=== PATIENT | male | born 1940 | race Caucasian/White ===

== ENCOUNTER 2016-09-29 18:04 | Emergency (ER) | payer OTHER ==
--- NOTE | 2016-09-29 18:48 | ED CLINICAL REPORT ---
Clinical Report - Physicians/Mid Levels [facility] [address] [place] [address] 09/29/2016 18:04 Patient: BARBARA MURDOCK Time Seen: 18:17. Arrived- By private vehicle. Historian- patient. HISTORY OF PRESENT ILLNESS Chief Complaint: "food stuck in my throat". This started just prior to arrival and is still present. It was abrupt in onset and has been constant. (patient has a history of lung cancer which she says has now been treated and that he is cancer free. However, he underwent radiation therapy during his treatment. He says that he has hada prior event where food got stuck in his throat and that this improved with the use of glucagon. This occurred up at [facility] several weeks ago. He says that he is not able to swallow his secretions or liquids He believes that a piece of roast beef and some mashed potatoes may have gotten stuck). REVIEW OF SYSTEMS No chills, fever, sweats, calf pain or chest pain. No cough, difficulty breathing, pedal edema, palpitations or abdominal pain. No constipation, diarrhea, nausea, vomiting or urinary problems. All systems otherwise negative, except as recorded above. PAST HISTORY Problems: Nephropathy. TIA - Transient Ischemic Attack. Cancer. Paresthesia. Rib Fracture. Fall. Contusion. Heart Disease. Urinary Retention. Pneumonia. Sleep Apnea. CVA - Cerebrovascular Accident. [place] . Bronchitis. Chronic Back Pain. Diabetes Mellitus. Hypertension. Additional Surgeries: Bilateral hand surgeries . Cardiac stent. Cholecystectomy. Hernia Repair. Tonsillectomy. Umbilical Hernia Repair. Medications: Vitamin E Complex Oral. Amino Acids ER Oral. Amitriptyline HCl Oral 50 mg, at bedtime. Chemotherapy, weekly, last dose 10 days ago (skipped this week due to low WBC (IV infusion though PORT). ferritin 2 tablets, daily. Furosemide Oral 20 mg, 2x a day. Hydrochlorothiazide Oral 25 mg, daily. Insulin Levemir 12 units, 2x a day. Insulin Novalog sliding scale, 3x a day. MetFORMIN HCl Oral (Tablet 500 mg) 2 tablets, 2x a day. NIFEdipine Oral 30 mg, at bedtime. Plavix Oral (Tablet 75 mg) 1 tablet, daily. Potassium Oral 10meq, daily. Vitamin B-12 Oral. Vitamin c Oral. Vitamin D Oral. Allergies: None. SOCIAL HISTORY Former smoker, end date 1996. No alcohol use or drug use. FAMILY HISTORY Denies family medical history. ADDITIONAL NOTES The nursing notes have been reviewed. PHYSICAL EXAM Vital Signs: 09/29/2016 18:10 BP: 200/71. HR: 91. RR: 20. O2 saturation: 97%. Temp: 98.3 F. Pain level now: 03/03. Have been reviewed. Appearance: Alert. Eyes: Pupils equal, round and reactive to light. ENT: Ears normal. Nose normal. Pharynx normal. (he is not able to swallow his secretions). Neck: Neck supple. No carotid bruit. CVS: Normal heart rate and rhythm. 1/6 systolic murmur. Respiratory: No respiratory distress. Breath sounds normal. Abdomen: No visible injury. Soft and nontender. Bowel sounds normal. No organomegaly. No mass. Back: Normal inspection. Skin: Skin warm and dry. Normal skin color. Normal skin turgor. Extremities: Extremities exhibit normal ROM. No lower extremity edema. Neuro: No motor deficit. No sensory deficit. PROGRESS AND PROCEDURES Course of Care: he has an appointment pending in [address] Elder a manufacturers agent in [place]. This appointment is to evaluate him further for this problem. The patient's symptoms are now gone. Vital signs have been reviewed. Physical exam findings are improved. Alert. No acute distress. No respiratory distress. Normal heart rate and rhythm. Abdomen soft and nontender. Skin warm and dry. ( his symptoms resolved and he is able to drink liquids without difficulty after being treated with glucagon). Patient/family counseled. Old medical records reviewed. Disposition: Discharged. Condition: stable. CLINICAL IMPRESSION Esophageal foreign body. INSTRUCTIONS Liquids only until reevaluated. Warnings: Further evaluation is necessary. GENERAL WARNINGS: Return or contact your physician immediately if your condition worsens or changes unexpectedly, if not improving as expected, or if other problems arise. Your Current Medications: CONTINUE TAKING THE FOLLOWING MEDICATIONS: Amino Acids ER Oral. Amitriptyline HCl Oral : 50 mg at bedtime. ferritin* : 2 tablets daily. Furosemide Oral : 20 mg 2x a day. Hydrochlorothiazide Oral : 25 mg daily. Insulin Levemir* : 12 units 2x a day. Insulin Novalog* : sliding scale 3x a day. MetFORMIN HCl Oral : Tablet 500 mg, 2 tablets 2x a day. NIFEdipine Oral : 30 mg at bedtime. Plavix Oral : Tablet 75 mg, 1 tablet daily. Potassium Oral : 10meq daily. Vitamin B-12 Oral. Vitamin c Oral. Vitamin D Oral. Vitamin E Complex Oral. CONTINUE TAKING THE FOLLOWING MEDICATIONS UNTIL YOU CHECK WITH YOUR PHYSICIAN: Chemotherapy* : weekly, Last: 10 days ago (skipped this week due to low WBC, IV infusion though PORT. Follow-up: Follow up with a manufacturers agent Dr. Elder in four days as scheduled. Understanding of the discharge instructions verbalized by patient and family. (Electronically signed by Yung Chase MD 09/29/2016 19:12)
--- NOTE | 2016-09-29 18:48 | ED NURSING NOTES ---
Clinical Report - Nurses [facility] [address] [place] [address] 09/29/2016 18:04 Patient: BARBARA MURDOCK TRIAGE Acuity: LEVEL 3. Chief Complaint: (food caught in throat). Alert. No acute distress. --18:20 Sherry Mendez R.N. 18:10 09/29/16. BP: 200/71. HR: 91. RR: 20. O2 saturation: 97% on room air. Temp: 98.3 F. Pain level now: 03/03. --18:20 Sherry Mendez R.N. Weight: 93.8 kg stated. Height/Length: 71 inches Per Patient. BMI: 28.9. --18:15 Sherry Mendez R.N. Medications Amino Acids ER Oral. Amitriptyline HCl Oral 50 mg, at bedtime. Chemotherapy, weekly, last dose 10 days ago (skipped this week due to low WBC (IV infusion though PORT). ferritin 2 tablets, daily. Furosemide Oral 20 mg, 2x a day. Hydrochlorothiazide Oral 25 mg, daily. Insulin Levemir 12 units, 2x a day. Insulin Novalog sliding scale, 3x a day. MetFORMIN HCl Oral (Tablet 500 mg) 2 tablets, 2x a day. NIFEdipine Oral 30 mg, at bedtime. Plavix Oral (Tablet 75 mg) 1 tablet, daily. Potassium Oral 10meq, daily. Vitamin B-12 Oral. Vitamin c Oral. Vitamin D Oral. --18:12 Sherry Mendez R.N. Vitamin E Complex Oral. --18:12 Sherry Mendez R.N. Medication/allergy information source: the patient. --18:20 Sherry Mendez R.N. Allergies None. --18:13 Sherry Mendez R.N. History Arrived by private vehicle. Historian: patient. Accompanied by spouse. This started just prior to arrival. ( Pt reports he was eating roast beef and potatoes and now feels it is stuck in his throat. He states he had the same thing occur 2 weeks ago. Pt having difficulty swallowing secretions.). Treatment HOME HEALTH CNA: None. SOCIAL HX: Former smoker, end date 1996. No alcohol use or drug use. FALL RISK ASSESSMENT: Fall risk assessment completed. No fall risk identified. NUTRITIONAL RISK ASSESSMENT: The nutritional risk assessment revealed no deficiencies. FUNCTIONAL ASSESSMENT: Functional assessment: no impairments noted. LEARNING NEEDS ASSESSMENT: The learning needs assessment revealed no barriers. SKIN INTEGRITY ASSESSMENT: Skin integrity risk assessment completed. No skin integrity risk identified. --18:20 Sherry Mendez R.N. PROBLEMS: Nephropathy. TIA - Transient Ischemic Attack. Cancer. Paresthesia. Rib Fracture. Fall. Contusion. Heart Disease. Urinary Retention. Pneumonia. Sleep Apnea. [place] . Immunizations. Bronchitis. Chronic Back Pain. Diabetes Mellitus. Hypertension. --18:13 Sherry Mendez R.N. ADDITIONAL SURGERIES: Bilateral hand surgeries . Cardiac stent. Cholecystectomy. Hernia Repair. Tonsillectomy. Umbilical Hernia Repair. --18:13 Sherry Mendez R.N. Assessment GENERAL / NEURO / PSYCH: Alert. Oriented X 4. Appears in no acute distress. [place] Coma Scale: 15- eyes open spontaneously (4); best verbal response- oriented x 4 (5); best motor response- obeys commands (6). Patient appears calm and cooperative. RESPIRATORY: Respirations not labored. CVS: Capillary refill less than 2 seconds. GI / : Abdomen soft and nontender. SKIN: Mucous membranes are pink. Skin is warm and dry. --18:20 Sherry Mendez R.N. Interventions ID band on patient. To treatment room. --18:20 Sherry Mendez R.N. PHYSICAL ASSESSMENT 18:09/29/16. Ambulatory to room. GENERAL / NEURO / PSYCH: Alert. Oriented X 4. Appears in no acute distress. HEENT: Pupils equal, round and reactive to light. Voice within normal limits. Mucous membranes are pink. RESPIRATORY: Respirations not labored. CVS: Capillary refill less than 2 seconds. SKIN: Skin is warm and dry. --18:21 Sherry Mendez R.N. NURSING PROGRESS NOTES 18:21 09/29/16. Patient gowned. Two patient identifiers checked. Call light placed in reach. Side rails up x 2. Bed placed in lowest position. Brakes of bed on. Patient ready for evaluation- chart flagged and ED physician notified. ( suction provided). --18:21 Sherry Mendez R.N. 18:29 09/29/2016 Site #1 started via IV in the left wrist with an 20g angiocath, with aseptic technique and good blood return; one attempt. Blood drawn: rainbow set. Labeled in the presence of the patient and held. Saline lock flushed with 10 mL saline. --18:29 Sherry Mendez R.N. 18:29 09/29/2016 Glucagon IVP 0.5 mg given over 1 minute(s) via site #1. Allergies verified and confirmed 5 rights. IV patency established. IV site checked: no pain, redness, or swelling. IV flushed thoroughly pre- and post-medication administration. IVP given by RN. --18:29 Sherry Mendez R.N. 18:39 09/29/16. BP: 160/54. HR: 83. RR: 19. O2 saturation: 95% on room air. --18:40 Sherry Mendez R.N. 18:46 09/29/16. ( Pt able to drink water. Pt states foreign body has cleared.). --18:46 Sherry Mendez R.N. 18:46 09/29/16. Reassessment after medication administered. He has had no adverse reaction. Overall patient status- he states feels better. --18:46 Sherry Mendez R.N. 18:50 09/29/2016 Site #1 removed upon discharge. Catheter intact. Manual pressure and bandage applied. --20:28 Sherry Mendez R.N. DISPOSITION / DISCHARGE Departure time: 18:55 Sep 29 2016. Condition at departure: improved and stable. No learning barriers present. Discharge instructions provided and reviewed with the patient. Patient verbalized understanding. Written instructions provided in Portuguese. The patient was discharged by the physician. He was discharged home and accompanied by spouse. He left the Emergency Department ambulatory and via private vehicle. Spouse driving. --20:28 Sherry Mendez R.N. 20:27 09/29/16. BP: 146/44. HR: 83. RR: 20. O2 saturation: 97% on room air. Temp: 98.4 F (oral). Pain level now: 0/10. --20:28 Sherry Mendez R.N. Locked/Released at 09/29/2016 20:29 by Sherry Mendez R.N.
--- NOTE | 2016-09-29 18:48 | ED NURSING NOTES ---
Clinical Report - Nurses [facility] [address] [place] [address] 09/29/2016 18:04 Patient: BARBARA MURDOCK TRIAGE Acuity: LEVEL 3. Chief Complaint: (food caught in throat). Alert. No acute distress. --18:20 Sherry Mendez R.N. 18:10 09/29/16. BP: 200/71. HR: 91. RR: 20. O2 saturation: 97% on room air. Temp: 98.3 F. Pain level now: 03/03. --18:20 Sherry Mendez R.N. Weight: 93.8 kg stated. Height/Length: 71 inches Per Patient. BMI: 28.9. --18:15 Sherry Mendez R.N. Medications Amino Acids ER Oral. Amitriptyline HCl Oral 50 mg, at bedtime. Chemotherapy, weekly, last dose 10 days ago (skipped this week due to low WBC (IV infusion though PORT). ferritin 2 tablets, daily. Furosemide Oral 20 mg, 2x a day. Hydrochlorothiazide Oral 25 mg, daily. Insulin Levemir 12 units, 2x a day. Insulin Novalog sliding scale, 3x a day. MetFORMIN HCl Oral (Tablet 500 mg) 2 tablets, 2x a day. NIFEdipine Oral 30 mg, at bedtime. Plavix Oral (Tablet 75 mg) 1 tablet, daily. Potassium Oral 10meq, daily. Vitamin B-12 Oral. Vitamin c Oral. Vitamin D Oral. --18:12 Sherry Mendez R.N. Vitamin E Complex Oral. --18:12 Sherry Mendez R.N. Medication/allergy information source: the patient. --18:20 Sherry Mendez R.N. Allergies None. --18:13 Sherry Mendez R.N. History Arrived by private vehicle. Historian: patient. Accompanied by spouse. This started just prior to arrival. ( Pt reports he was eating roast beef and potatoes and now feels it is stuck in his throat. He states he had the same thing occur 2 weeks ago. Pt having difficulty swallowing secretions.). Treatment DIVERSIONAL THERAPIST'S ASSISTANT: None. SOCIAL HX: Former smoker, end date 1996. No alcohol use or drug use. FALL RISK ASSESSMENT: Fall risk assessment completed. No fall risk identified. NUTRITIONAL RISK ASSESSMENT: The nutritional risk assessment revealed no deficiencies. FUNCTIONAL ASSESSMENT: Functional assessment: no impairments noted. LEARNING NEEDS ASSESSMENT: The learning needs assessment revealed no barriers. SKIN INTEGRITY ASSESSMENT: Skin integrity risk assessment completed. No skin integrity risk identified. --18:20 Sherry Mendez R.N. PROBLEMS: Nephropathy. TIA - Transient Ischemic Attack. Cancer. Paresthesia. Rib Fracture. Fall. Contusion. Heart Disease. Urinary Retention. Pneumonia. Sleep Apnea. [place] . Immunizations. Bronchitis. Chronic Back Pain. Diabetes Mellitus. Hypertension. --18:13 Sherry Mendez R.N. ADDITIONAL SURGERIES: Bilateral hand surgeries . Cardiac stent. Cholecystectomy. Hernia Repair. Tonsillectomy. Umbilical Hernia Repair. --18:13 Sherry Mendez R.N. Assessment GENERAL / NEURO / PSYCH: Alert. Oriented X 4. Appears in no acute distress. [place] Coma Scale: 15- eyes open spontaneously (4); best verbal response- oriented x 4 (5); best motor response- obeys commands (6). Patient appears calm and cooperative. RESPIRATORY: Respirations not labored. CVS: Capillary refill less than 2 seconds. GI / : Abdomen soft and nontender. SKIN: Mucous membranes are pink. Skin is warm and dry. --18:20 Sherry Mendez R.N. Interventions ID band on patient. To treatment room. --18:20 Sherry Mendez R.N. PHYSICAL ASSESSMENT 18:09/29/16. Ambulatory to room. GENERAL / NEURO / PSYCH: Alert. Oriented X 4. Appears in no acute distress. HEENT: Pupils equal, round and reactive to light. Voice within normal limits. Mucous membranes are pink. RESPIRATORY: Respirations not labored. CVS: Capillary refill less than 2 seconds. SKIN: Skin is warm and dry. --18:21 Sherry Mendez R.N. NURSING PROGRESS NOTES 18:21 09/29/16. Patient gowned. Two patient identifiers checked. Call light placed in reach. Side rails up x 2. Bed placed in lowest position. Brakes of bed on. Patient ready for evaluation- chart flagged and ED physician notified. ( suction provided). --18:21 Sherry Mendez R.N. 18:29 09/29/2016 Site #1 started via IV in the left wrist with an 20g angiocath, with aseptic technique and good blood return; one attempt. Blood drawn: rainbow set. Labeled in the presence of the patient and held. Saline lock flushed with 10 mL saline. --18:29 Sherry Mendez R.N. 18:29 09/29/2016 Glucagon IVP 0.5 mg given over 1 minute(s) via site #1. Allergies verified and confirmed 5 rights. IV patency established. IV site checked: no pain, redness, or swelling. IV flushed thoroughly pre- and post-medication administration. IVP given by RN. --18:29 Sherry Mendez R.N. 18:39 09/29/16. BP: 160/54. HR: 83. RR: 19. O2 saturation: 95% on room air. --18:40 Sherry Mendez R.N. 18:46 09/29/16. ( Pt able to drink water. Pt states foreign body has cleared.). --18:46 Sherry Mendez R.N. 18:46 09/29/16. Reassessment after medication administered. He has had no adverse reaction. Overall patient status- he states feels better. --18:46 Sherry Mendez R.N. 18:50 09/29/2016 Site #1 removed upon discharge. Catheter intact. Manual pressure and bandage applied. --20:28 Sherry Mendez R.N. DISPOSITION / DISCHARGE Departure time: 18:55 Sep 29 2016. Condition at departure: improved and stable. No learning barriers present. Discharge instructions provided and reviewed with the patient. Patient verbalized understanding. Written instructions provided in Sinhala. The patient was discharged by the physician. He was discharged home and accompanied by spouse. He left the Emergency Department ambulatory and via private vehicle. Spouse driving. --20:28 Sherry Mendez R.N. 20:27 09/29/16. BP: 146/44. HR: 83. RR: 20. O2 saturation: 97% on room air. Temp: 98.4 F (oral). Pain level now: 0/10. --20:28 Sherry Mendez R.N. Locked/Released at 09/29/2016 20:29 by Sherry Mendez R.N.
--- NOTE | 2016-09-29 18:48 | ED ORDER SUMMARY ---
..... Patient: BARBARA MURDOCK OrderSheet [facility] VisitID: [id number] [address] [place] [address] 76y, M Registration Date/Time: 09/29/2016 ORDER SHEET Weight: 93.8 kg (stated) Allergies: None GENERAL ORDERS: MEDICATION ORDERS: Glucagon IV 0.5 mg (NOW) (18:28 09/29/2016 Guero RLuis EnriqueNLuis Enrique verbal order read back to Grzegorz BLOOD) (18:29 MWinterdelgado R.NLuis Enrique) IV FLUIDS: ORDER SHEET NOTES: [Electronically signed by Yung Chase MD (19:12 09/29/2016)] [Electronically signed by Sherry Mendez R.N. (20:29 09/29/2016)] [Electronically locked/signed by Sherry Mendez R.N. (20:29 09/29/2016)]
--- NOTE | 2016-09-29 18:48 | ED ORDER SUMMARY ---
..... Patient: BARBARA MURDOCK OrderSheet [facility] VisitID: [id number] [address] [place] [place] [address] 76y, M Registration Date/Time: 09/29/2016 ORDER SHEET Weight: 93.8 kg (stated) Allergies: None GENERAL ORDERS: MEDICATION ORDERS: Glucagon IV 0.5 mg (NOW) (18:28 09/29/2016 Guero RLuis EnriqueNLuis Enrique verbal order read back to Grzegorz BLOOD) (18:29 MWinterdelgado R.NLuis Enrique) IV FLUIDS: ORDER SHEET NOTES: [Electronically signed by Yung Chase MD (19:12 09/29/2016)] [Electronically signed by Sherry Mendez R.N. (20:29 09/29/2016)] [Electronically locked/signed by Sherry Mendez R.N. (20:29 09/29/2016)]
--- NOTE | 2016-09-29 18:48 | ED CLINICAL REPORT ---
Clinical Report - Physicians/Mid Levels [facility] [address] [place] [address] 09/29/2016 18:04 Patient: BARBARA MURDOCK Time Seen: 18:17. Arrived- By private vehicle. Historian- patient. HISTORY OF PRESENT ILLNESS Chief Complaint: "food stuck in my throat". This started just prior to arrival and is still present. It was abrupt in onset and has been constant. (patient has a history of lung cancer which she says has now been treated and that he is cancer free. However, he underwent radiation therapy during his treatment. He says that he has hada prior event where food got stuck in his throat and that this improved with the use of glucagon. This occurred up at [facility] several weeks ago. He says that he is not able to swallow his secretions or liquids He believes that a piece of roast beef and some mashed potatoes may have gotten stuck). REVIEW OF SYSTEMS No chills, fever, sweats, calf pain or chest pain. No cough, difficulty breathing, pedal edema, palpitations or abdominal pain. No constipation, diarrhea, nausea, vomiting or urinary problems. All systems otherwise negative, except as recorded above. PAST HISTORY Problems: Nephropathy. TIA - Transient Ischemic Attack. Cancer. Paresthesia. Rib Fracture. Fall. Contusion. Heart Disease. Urinary Retention. Pneumonia. Sleep Apnea. CVA - Cerebrovascular Accident. [place] . Bronchitis. Chronic Back Pain. Diabetes Mellitus. Hypertension. Additional Surgeries: Bilateral hand surgeries . Cardiac stent. Cholecystectomy. Hernia Repair. Tonsillectomy. Umbilical Hernia Repair. Medications: Vitamin E Complex Oral. Amino Acids ER Oral. Amitriptyline HCl Oral 50 mg, at bedtime. Chemotherapy, weekly, last dose 10 days ago (skipped this week due to low WBC (IV infusion though PORT). ferritin 2 tablets, daily. Furosemide Oral 20 mg, 2x a day. Hydrochlorothiazide Oral 25 mg, daily. Insulin Levemir 12 units, 2x a day. Insulin Novalog sliding scale, 3x a day. MetFORMIN HCl Oral (Tablet 500 mg) 2 tablets, 2x a day. NIFEdipine Oral 30 mg, at bedtime. Plavix Oral (Tablet 75 mg) 1 tablet, daily. Potassium Oral 10meq, daily. Vitamin B-12 Oral. Vitamin c Oral. Vitamin D Oral. Allergies: None. SOCIAL HISTORY Former smoker, end date 1996. No alcohol use or drug use. FAMILY HISTORY Denies family medical history. ADDITIONAL NOTES The nursing notes have been reviewed. PHYSICAL EXAM Vital Signs: 09/29/2016 18:10 BP: 200/71. HR: 91. RR: 20. O2 saturation: 97%. Temp: 98.3 F. Pain level now: 03/03. Have been reviewed. Appearance: Alert. Eyes: Pupils equal, round and reactive to light. ENT: Ears normal. Nose normal. Pharynx normal. (he is not able to swallow his secretions). Neck: Neck supple. No carotid bruit. CVS: Normal heart rate and rhythm. 1/6 systolic murmur. Respiratory: No respiratory distress. Breath sounds normal. Abdomen: No visible injury. Soft and nontender. Bowel sounds normal. No organomegaly. No mass. Back: Normal inspection. Skin: Skin warm and dry. Normal skin color. Normal skin turgor. Extremities: Extremities exhibit normal ROM. No lower extremity edema. Neuro: No motor deficit. No sensory deficit. PROGRESS AND PROCEDURES Course of Care: he has an appointment pending in [address] Elder a forest and conservation worker in [place]. This appointment is to evaluate him further for this problem. The patient's symptoms are now gone. Vital signs have been reviewed. Physical exam findings are improved. Alert. No acute distress. No respiratory distress. Normal heart rate and rhythm. Abdomen soft and nontender. Skin warm and dry. ( his symptoms resolved and he is able to drink liquids without difficulty after being treated with glucagon). Patient/family counseled. Old medical records reviewed. Disposition: Discharged. Condition: stable. CLINICAL IMPRESSION Esophageal foreign body. INSTRUCTIONS Liquids only until reevaluated. Warnings: Further evaluation is necessary. GENERAL WARNINGS: Return or contact your physician immediately if your condition worsens or changes unexpectedly, if not improving as expected, or if other problems arise. Your Current Medications: CONTINUE TAKING THE FOLLOWING MEDICATIONS: Amino Acids ER Oral. Amitriptyline HCl Oral : 50 mg at bedtime. ferritin* : 2 tablets daily. Furosemide Oral : 20 mg 2x a day. Hydrochlorothiazide Oral : 25 mg daily. Insulin Levemir* : 12 units 2x a day. Insulin Novalog* : sliding scale 3x a day. MetFORMIN HCl Oral : Tablet 500 mg, 2 tablets 2x a day. NIFEdipine Oral : 30 mg at bedtime. Plavix Oral : Tablet 75 mg, 1 tablet daily. Potassium Oral : 10meq daily. Vitamin B-12 Oral. Vitamin c Oral. Vitamin D Oral. Vitamin E Complex Oral. CONTINUE TAKING THE FOLLOWING MEDICATIONS UNTIL YOU CHECK WITH YOUR PHYSICIAN: Chemotherapy* : weekly, Last: 10 days ago (skipped this week due to low WBC, IV infusion though PORT. Follow-up: Follow up with a forest and conservation worker Dr. Elder in four days as scheduled. Understanding of the discharge instructions verbalized by patient and family. (Electronically signed by Yung Chase MD 09/29/2016 19:12)
--- NOTE | 2016-09-29 20:29 | ED MAR SUMMARY ---
..... Medication Administration Record [facility] [address] [place], [place] [id number] Patient: BARBARA MURDOCK Visit ID: [id number] 76y, M Weight: 93.8 kg Height/Length: 71 in BMI: 28.9 ALLERGIES: None Given 18:29 09/29/2016 Sherry Mendez R.N. Medication Administered: GLUCAGON [IVP], Dose: 0.5 mg IVP over 1 minute(s), Site: #1 left wrist. Medication Ordered: Glucagon IV 0.5 mg (NOW).
--- NOTE | 2016-09-29 20:29 | ED MED RECONCILIATION SUMMARY ---
Patient: BARBARA MURDOCK Medication Reconciliation Report [facility] VisitID: [id number] [address] [place] [address] 76y, M Registration Date/Time: 09/29/2016 Weight: 93.8 kg Height/Length: 71 in. BMI: 28.9 ALLERGIES: None The patient's Home Medications are listed below: CONTINUE TAKING THE FOLLOWING MEDICATIONS: Amino Acids ER Oral Amitriptyline HCl Oral 50 mg, at bedtime ferritin 2 tablets, daily Furosemide Oral 20 mg, 2x a day Hydrochlorothiazide Oral 25 mg, daily Insulin Levemir 12 units, 2x a day Insulin Novalog sliding scale, 3x a day MetFORMIN HCl Oral (500 mg) 2 tablets, 2x a day NIFEdipine Oral 30 mg, at bedtime Plavix Oral (75 mg) 1 tablet, daily Potassium Oral 10meq, daily Vitamin B-12 Oral Vitamin c Oral Vitamin D Oral Vitamin E Complex Oral CONTINUE TAKING THE FOLLOWING MEDICATIONS UNTIL YOU CHECK WITH YOUR PHYSICIAN: Chemotherapy, weekly, last dose: 10 days ago (skipped this week due to low WBC , IV infusion though PORT The source(s) of the original Home Medication information: patient The following Medications were given to the patient in the Emergency Department: Glucagon [IVP] IVP 0.5 mg, administered: 09/29/2016 6:29:00 PM The following Medications were prescribed to the patient: None.
--- NOTE | 2016-09-29 20:29 | ED MED RECONCILIATION SUMMARY ---
Patient: BARBARA MURDOCK Medication Reconciliation Report [facility] VisitID: [id number] [address] [place] [address] 76y, M Registration Date/Time: 09/29/2016 Weight: 93.8 kg Height/Length: 71 in. BMI: 28.9 ALLERGIES: None The patient's Home Medications are listed below: CONTINUE TAKING THE FOLLOWING MEDICATIONS: Amino Acids ER Oral Amitriptyline HCl Oral 50 mg, at bedtime ferritin 2 tablets, daily Furosemide Oral 20 mg, 2x a day Hydrochlorothiazide Oral 25 mg, daily Insulin Levemir 12 units, 2x a day Insulin Novalog sliding scale, 3x a day MetFORMIN HCl Oral (500 mg) 2 tablets, 2x a day NIFEdipine Oral 30 mg, at bedtime Plavix Oral (75 mg) 1 tablet, daily Potassium Oral 10meq, daily Vitamin B-12 Oral Vitamin c Oral Vitamin D Oral Vitamin E Complex Oral CONTINUE TAKING THE FOLLOWING MEDICATIONS UNTIL YOU CHECK WITH YOUR PHYSICIAN: Chemotherapy, weekly, last dose: 10 days ago (skipped this week due to low WBC , IV infusion though PORT The source(s) of the original Home Medication information: patient The following Medications were given to the patient in the Emergency Department: Glucagon [IVP] IVP 0.5 mg, administered: 09/29/2016 6:29:00 PM The following Medications were prescribed to the patient: None.
--- NOTE | 2016-09-29 20:29 | ED DISCHARGE INSTRUCTIONS ---
Patient: BARBARA MURDOCK General Instructions [facility] VisitID: [id number] [address] [place] [address] 76y, M Registration Date/Time: 09/29/2016 Esophageal foreign body. INSTRUCTIONS Liquids only until reevaluated. Warnings: Further evaluation is necessary. GENERAL WARNINGS: Return or contact your physician immediately if your condition worsens or changes unexpectedly, if not improving as expected, or if other problems arise. Your Current Medications: CONTINUE TAKING THE FOLLOWING MEDICATIONS: Amino Acids ER Oral. Amitriptyline HCl Oral : 50 mg at bedtime. ferritin* : 2 tablets daily. Furosemide Oral : 20 mg 2x a day. Hydrochlorothiazide Oral : 25 mg daily. Insulin Levemir* : 12 units 2x a day. Insulin Novalog* : sliding scale 3x a day. MetFORMIN HCl Oral : Tablet 500 mg, 2 tablets 2x a day. NIFEdipine Oral : 30 mg at bedtime. Plavix Oral : Tablet 75 mg, 1 tablet daily. Potassium Oral : 10meq daily. Vitamin B-12 Oral. Vitamin c Oral. Vitamin D Oral. Vitamin E Complex Oral. CONTINUE TAKING THE FOLLOWING MEDICATIONS UNTIL YOU CHECK WITH YOUR PHYSICIAN: Chemotherapy* : weekly, Last: 10 days ago (skipped this week due to low WBC, IV infusion though PORT. Follow-up: Follow up with a pole maker Dr. Elder in four days as scheduled. Understanding of the discharge instructions verbalized by patient and family. ADDITIONAL INFORMATION Esophageal Blockage, Resolved The esophagus is the passage that carries food from the mouth to the stomach. You had a blockage in the esophagus. This can happen after swallowing a large piece of food, taking a large pill or swallowing foreign objects. If this is a recurring problem, it can be a sign of disease in the esophagus such as inflammation or scarring. If you did not require a special procedure (endoscopy) today to treat your condition, further testing will be needed to evaluate this problem. The blockage has cleared. You should be able to swallow normally again. Home Care: For the next 24 hours you may drink liquids and eat soft foods. If you were given IV medicine today for an endoscopy procedure, you may be drowsy for the next 4-[address] or operate dangerous equipment until you feel alert again. If your blockage was from food, be sure to cut solid food into small pieces before putting it into your mouth. Chew all foods well before swallowing. If your blockage was from an lklh-mjg-ayhjegv pill (such as a vitamin), avoid this size pill in the future. If it was from a prescription medicine, ask your doctor for another type of medicine to replace this. Follow Up with your doctor as advised. If you have further problems, contact your doctor or this facility for advice. If this is a recurring problem, contact your doctor to schedule an endoscopy (to look inside the esophagus with a small camera on the end of a tube). Get Prompt Medical Attention if any of the following occur: Chest pain or shortness of breath Unable to swallow Vomiting blood (red or black) Blood in your stool (dark red or black color) Fever of 100.4F (38C) or higher, or as directed by your healthcare provider You have been given the following additional information: Esophageal Foreign Body, Resolved (Electronically signed by Yung Chase MD 09/29/2016 19:12)
--- NOTE | 2016-09-29 20:29 | ED MAR SUMMARY ---
..... Medication Administration Record [facility] [address] [id number] Patient: BARBARA MURDOCK Visit ID: [id number] 76y, M Weight: 93.8 kg Height/Length: 71 in BMI: 28.9 ALLERGIES: None Given 18:29 09/29/2016 Sherry Mendez R.N. Medication Administered: GLUCAGON [IVP], Dose: 0.5 mg IVP over 1 minute(s), Site: #1 left wrist. Medication Ordered: Glucagon IV 0.5 mg (NOW).
--- NOTE | 2016-09-29 20:29 | ED DISCHARGE INSTRUCTIONS ---
Patient: BARBARA MURDOCK General Instructions [facility] VisitID: [id number] [address] [place] [address] 76y, M Registration Date/Time: 09/29/2016 Esophageal foreign body. INSTRUCTIONS Liquids only until reevaluated. Warnings: Further evaluation is necessary. GENERAL WARNINGS: Return or contact your physician immediately if your condition worsens or changes unexpectedly, if not improving as expected, or if other problems arise. Your Current Medications: CONTINUE TAKING THE FOLLOWING MEDICATIONS: Amino Acids ER Oral. Amitriptyline HCl Oral : 50 mg at bedtime. ferritin* : 2 tablets daily. Furosemide Oral : 20 mg 2x a day. Hydrochlorothiazide Oral : 25 mg daily. Insulin Levemir* : 12 units 2x a day. Insulin Novalog* : sliding scale 3x a day. MetFORMIN HCl Oral : Tablet 500 mg, 2 tablets 2x a day. NIFEdipine Oral : 30 mg at bedtime. Plavix Oral : Tablet 75 mg, 1 tablet daily. Potassium Oral : 10meq daily. Vitamin B-12 Oral. Vitamin c Oral. Vitamin D Oral. Vitamin E Complex Oral. CONTINUE TAKING THE FOLLOWING MEDICATIONS UNTIL YOU CHECK WITH YOUR PHYSICIAN: Chemotherapy* : weekly, Last: 10 days ago (skipped this week due to low WBC, IV infusion though PORT. Follow-up: Follow up with a medical insurance claims processor Dr. Elder in four days as scheduled. Understanding of the discharge instructions verbalized by patient and family. ADDITIONAL INFORMATION Esophageal Blockage, Resolved The esophagus is the passage that carries food from the mouth to the stomach. You had a blockage in the esophagus. This can happen after swallowing a large piece of food, taking a large pill or swallowing foreign objects. If this is a recurring problem, it can be a sign of disease in the esophagus such as inflammation or scarring. If you did not require a special procedure (endoscopy) today to treat your condition, further testing will be needed to evaluate this problem. The blockage has cleared. You should be able to swallow normally again. Home Care: For the next 24 hours you may drink liquids and eat soft foods. If you were given IV medicine today for an endoscopy procedure, you may be drowsy for the next 4-[address] or operate dangerous equipment until you feel alert again. If your blockage was from food, be sure to cut solid food into small pieces before putting it into your mouth. Chew all foods well before swallowing. If your blockage was from an ugze-via-ubaleyl pill (such as a vitamin), avoid this size pill in the future. If it was from a prescription medicine, ask your doctor for another type of medicine to replace this. Follow Up with your doctor as advised. If you have further problems, contact your doctor or this facility for advice. If this is a recurring problem, contact your doctor to schedule an endoscopy (to look inside the esophagus with a small camera on the end of a tube). Get Prompt Medical Attention if any of the following occur: Chest pain or shortness of breath Unable to swallow Vomiting blood (red or black) Blood in your stool (dark red or black color) Fever of 100.4F (38C) or higher, or as directed by your healthcare provider You have been given the following additional information: Esophageal Foreign Body, Resolved (Electronically signed by Yung Chase MD 09/29/2016 19:12)
== END 2016-09-29 18:55 | disposition home or self-care (01) ==
LOC: ED SRH 18:04
DX: S10.15XA Superficial foreign body of throat, initial encounter (principal); X58.XXXA Exposure to other specified factors, initial encounter; Y93.89 Activity, other specified; Y99.9 Unspecified external cause status; Y92.9 Unspecified place or not applicable; I10 Essential (primary) hypertension; E11.21 Type 2 diabetes mellitus with diabetic nephropathy; I25.2 Old myocardial infarction; Z86.73 Personal history of transient ischemic attack (TIA), and cerebral infarction without residual deficits; Z90.49 Acquired absence of other specified parts of digestive tract

== ENCOUNTER 2016-11-13 20:14 | Emergency (ER) | payer OTHER ==
--- NOTE | 2016-11-13 21:13 | ED CLINICAL REPORT ---
Clinical Report - Physicians/Mid Levels [facility] [address] [place] [address] 11/13/2016 20:15 Patient: BARBARA MURDOCK Time Seen: 20:53. Arrived- By private vehicle. Historian- patient. HISTORY OF PRESENT ILLNESS Chief Complaint: FOREIGN BODY SENSATION IN THROAT. This started today and is still present. It was abrupt in onset and has been constant. Pain described as mild. The patient has had a sore throat with inability to swallow. (FB stuck in throat. Pt states that he started having trouble at lunch and the meatloaf he had for dinner didn't help. He states that he has had lung CA and and recently had radiation therapy, which in turn caused the esophageal stricture. He has had a FB stuck in his throat twice before and received Glucagon, which relieved the obstruction.). This started today. Onset. (about 8 hours ago). ( Oral secretions keep coming back up.).). Similar symptoms previously: Several times. Diagnosed as esophageal foreign body. REVIEW OF SYSTEMS No chills, fever, sweats, calf pain or chest pain. No cough, difficulty breathing, pedal edema, palpitations or abdominal pain. No constipation, diarrhea, nausea, vomiting or urinary problems. All systems otherwise negative, except as recorded above. SOCIAL HISTORY Smoker- current status unknown. No alcohol use or drug use. FAMILY HISTORY No significant family medical history. ADDITIONAL NOTES The nursing notes have been reviewed. PHYSICAL EXAM Vital Signs: 11/13/2016 20:27 BP: 185/53. HR: 74. RR: 16. O2 saturation: 96%. Temp: 99 F. Pain level now: 09/03. Have been reviewed. Appearance: Alert. No acute distress. ENT: Ears normal. Nose normal. Pharynx normal. Gums normal. No trismus present. Uvula midline. Neck: Normal inspection. Trachea midline. No adenopathy. Thyroid normal. Neck supple. CVS: Normal heart rate and rhythm. Heart sounds normal. Respiratory: No respiratory distress. Breath sounds normal. Abdomen: Soft and nontender. No organomegaly. Skin: Normal skin color. No rash. Normal skin turgor. Extremities: Extremities exhibit normal ROM. Extremities nontender. PROGRESS AND PROCEDURES Course of Care: The patient's symptoms are now gone. Vital signs have been reviewed. Alert. No acute distress. No respiratory distress. Patient/family counseled. Old medical records reviewed. Disposition: Discharged. Condition: stable. CLINICAL IMPRESSION Esophageal foreign body: food. INSTRUCTIONS Drink plenty of fluids. Follow a soft diet. Warnings: Further evaluation is necessary. GENERAL WARNINGS: Return or contact your physician immediately if your condition worsens or changes unexpectedly, if not improving as expected, or if other problems arise. Your Current Medications: CONTINUE TAKING THE FOLLOWING MEDICATIONS: Amitriptyline HCl Oral : 50 mg at bedtime. ferritin* : 2 tablets daily. Insulin Levemir* : 12 units 2x a day. Insulin Novalog* : sliding scale 3x a day. Lisinopril Oral. MetFORMIN HCl Oral : Tablet 500 mg, 2 tablets 2x a day. Potassium Oral : 10meq daily. Vitamin B-12 Oral. Vitamin c Oral. Follow-up: Follow up with a mgmt consultant Friday as scheduled. Understanding of the discharge instructions verbalized by patient. (Electronically signed by Yung Chase MD 11/13/2016 21:29)
--- NOTE | 2016-11-13 21:13 | ED ORDER SUMMARY ---
..... Patient: BARBARA MURDOCK OrderSheet [facility] VisitID: [id number] [address] [place] [address] 76y, M Registration Date/Time: 11/13/2016 ORDER SHEET Weight: 97.5 kg (stated) Allergies: None GENERAL ORDERS: MEDICATION ORDERS: Glucagon IV 1 mg (NOW) (21:00 11/13/2016 Ta RodrigesNLuis Enrique verbal order read back to Grzegorz BLOOD) (21:02 Ta R.N.) IV FLUIDS: IV Saline Lock (20:43 11/13/2016 Ta Hurt verbal order read back to Grzegorz BLOOD) (20:44 Ta R.N.) ORDER SHEET NOTES: [Electronically signed by Yung Chase MD (21:29 11/13/2016)] [Electronically signed by Bebo Romo R.N. (21:47 11/13/2016)] [Electronically locked/signed by Bebo Romo R.N. (21:47 11/13/2016)]
--- NOTE | 2016-11-13 21:13 | ED NURSING NOTES ---
Clinical Report - Nurses [facility] [address] [place] [address] 11/13/2016 20:15 Patient: [facility]URDOCK [id number] TRI[facility] Triage time 20:Nov 13 2016. Acuity: LEVEL 3. Chief Complaint: (FB in esopagus). Alert. REBECCA COMA SCORE: Rebecca Coma Scale: 15- eyes open spontaneously (4); best verbal response- oriented x 4 (5); best motor response- obeys commands (6). --20:38 Bebo Romo R.N. 20:27 11/13/16. BP: 185/53. HR: 74. RR: 16. O2 saturation: 96% on room air. Temp: 99 F (oral). Pain level now: 09/03. Additional comments: dysphagia. --20:38 Bebo Romo R.N. Weight: 97.5 kg stated. Height/Length: 71 inches Per Patient. BMI: 30. --20:37 Bebo Romo R.N. Medications Amitriptyline HCl Oral 50 mg, at bedtime. ferritin 2 tablets, daily. Insulin Levemir 12 units, 2x a day. Insulin Novalog sliding scale, 3x a day. MetFORMIN HCl Oral (Tablet 500 mg) 2 tablets, 2x a day. Potassium Oral 10meq, daily. Vitamin B-12 Oral. Vitamin c Oral. --20:34 Bebo Romo R.N. Lisinopril Oral. --20:35 Bebo Romo R.N. Allergies None. --20:34 Bebo Romo R.N. History Arrived by private vehicle. Historian: patient. Accompanied by spouse. Primary physician (Shreya). ( FB stuck in throat. Pt states [facility] and the meatloaf he had for dinner didn't help. He states that he has had lung CA and and recently had radiation therapy, which in turn caused the esophageal stricture. He has had a FB stuck in his throat twice before and received Glucagon, which relieved the obstruction.). This started today. Onset. (about 8 hours ago). ( Oral secretions keep coming back up.). Treatment FIRE PREVENTION OFFICER: None. PAST MEDICAL HX: Immunizations: up-to-date. SOCIAL HX: Former smoker, end date 1996. No alcohol use or drug use. No infectious disease exposure. ABUSE ASSESSMENT: No report of abuse. FALL RISK ASSESSMENT: Fall risk assessment completed. No fall risk identified. NUTRITIONAL RISK ASSESSMENT: The nutritional risk assessment revealed no deficiencies. FUNCTIONAL ASSESSMENT: Functional assessment: no impairments noted. LEARNING NEEDS ASSESSMENT: The learning needs assessment revealed no barriers. SKIN INTEGRITY ASSESSMENT: Skin integrity risk assessment completed. No skin integrity risk identified. --20:38 Bebo Romo R.N. PROBLEMS: Esophageal Foreign Body. Nephropathy. TIA - Transient Ischemic Attack. Cancer. Paresthesia. Rib Fracture. Fall. Contusion. Heart Disease. Urinary Retention. Pneumonia. Sleep Apnea. CVA - Cerebrovascular Accident. CT . Immunizations. Bronchitis. Chronic Back Pain. Diabetes Mellitus. Hypertension. --20:35 Bebo Romo R.N. Interventions ID band on patient. To treatment room. --20:38 Bebo Romo R.N. PHYSICAL ASSESSMENT Ambulatory to room. GENERAL / NEURO / PSYCH: Alert. Oriented X 4. HEENT: No facial asymmetry noted. Mucous membranes are pink. RESPIRATORY: Respirations not labored. CVS: Cardiac rhythm: (RRR). GI / : Abdomen soft and nontender. SKIN: Skin intact. Skin is warm and dry. Normal skin turgor. --20:38 Bebo Romo R.N. NURSING PROGRESS NOTES Patient gowned. Reassurance given. Patient identifiers checked. Side rails up x 1. Bed placed in lowest position. Brakes of bed on. Patient ready for evaluation- chart flagged and ED physician notified. --20:39 Bebo Romo R.N. 20:34 11/13/2016 Site #1 started via IV in the left hand with an 20g angiocath; one attempt. Blood drawn: rainbow set. Saline lock flushed with 10 mL saline (start by Bindu Nance RN). --20:44 Bebo Romo R.N. 21:00 11/13/2016 Glucagon IVP 1 mg given over 2 minute(s) via site #1. Allergies verified and confirmed 5 rights. IV patency established. IV site checked: no pain, redness, or swelling. IV flushed thoroughly pre- and post-medication administration. IVP given by RN. --21:02 Bebo Romo R.N. DISPOSITION / DISCHARGE 21:15 11/13/16. BP: 155/47. HR: 73. RR: 16 (regular). O2 saturation: 97%. Temp: 99.1 F (oral). Pain level now: 0/10. --21:44 Bebo Romo R.N. Departure time: 2119. --21:44 Bebo Romo R.N. 21:20. No learning barriers present. Discharge instructions provided and reviewed with the patient and the patient left prior to discharge education being provided. Reviewed medication(s) (continue your usual prescribed medications). Reviewed referral to family practice. Patient verbalized understanding. Written instructions provided in Fijian. The patient was discharged by the physician. He was discharged home and accompanied by consolidator. He left the Emergency Department ambulatory and via private vehicle. Java User Interface Developer driving. --21:46 Bebo Romo R.N. Locked/Released at 11/13/2016 21:47 by Bebo Romo R.N.
--- NOTE | 2016-11-13 21:13 | ED CLINICAL REPORT ---
Clinical Report - Physicians/Mid Levels [facility] [address] [place] [address] 11/13/2016 20:15 Patient: BARBARA MURDOCK Time Seen: 20:53. Arrived- By private vehicle. Historian- patient. HISTORY OF PRESENT ILLNESS Chief Complaint: FOREIGN BODY SENSATION IN THROAT. This started today and is still present. It was abrupt in onset and has been constant. Pain described as mild. The patient has had a sore throat with inability to swallow. (FB stuck in throat. Pt states that he started having trouble at lunch and the meatloaf he had for dinner didn't help. He states that he has had lung CA and and recently had radiation therapy, which in turn caused the esophageal stricture. He has had a FB stuck in his throat twice before and received Glucagon, which relieved the obstruction.). This started today. Onset. (about 8 hours ago). ( Oral secretions keep coming back up.).). Similar symptoms previously: Several times. Diagnosed as esophageal foreign body. REVIEW OF SYSTEMS No chills, fever, sweats, calf pain or chest pain. No cough, difficulty breathing, pedal edema, palpitations or abdominal pain. No constipation, diarrhea, nausea, vomiting or urinary problems. All systems otherwise negative, except as recorded above. SOCIAL HISTORY Smoker- current status unknown. No alcohol use or drug use. FAMILY HISTORY No significant family medical history. ADDITIONAL NOTES The nursing notes have been reviewed. PHYSICAL EXAM Vital Signs: 11/13/2016 20:27 BP: 185/53. HR: 74. RR: 16. O2 saturation: 96%. Temp: 99 F. Pain level now: 09/03. Have been reviewed. Appearance: Alert. No acute distress. ENT: Ears normal. Nose normal. Pharynx normal. Gums normal. No trismus present. Uvula midline. Neck: Normal inspection. Trachea midline. No adenopathy. Thyroid normal. Neck supple. CVS: Normal heart rate and rhythm. Heart sounds normal. Respiratory: No respiratory distress. Breath sounds normal. Abdomen: Soft and nontender. No organomegaly. Skin: Normal skin color. No rash. Normal skin turgor. Extremities: Extremities exhibit normal ROM. Extremities nontender. PROGRESS AND PROCEDURES Course of Care: The patient's symptoms are now gone. Vital signs have been reviewed. Alert. No acute distress. No respiratory distress. Patient/family counseled. Old medical records reviewed. Disposition: Discharged. Condition: stable. CLINICAL IMPRESSION Esophageal foreign body: food. INSTRUCTIONS Drink plenty of fluids. Follow a soft diet. Warnings: Further evaluation is necessary. GENERAL WARNINGS: Return or contact your physician immediately if your condition worsens or changes unexpectedly, if not improving as expected, or if other problems arise. Your Current Medications: CONTINUE TAKING THE FOLLOWING MEDICATIONS: Amitriptyline HCl Oral : 50 mg at bedtime. ferritin* : 2 tablets daily. Insulin Levemir* : 12 units 2x a day. Insulin Novalog* : sliding scale 3x a day. Lisinopril Oral. MetFORMIN HCl Oral : Tablet 500 mg, 2 tablets 2x a day. Potassium Oral : 10meq daily. Vitamin B-12 Oral. Vitamin c Oral. Follow-up: Follow up with a information technology assistant Friday as scheduled. Understanding of the discharge instructions verbalized by patient. (Electronically signed by Yung Chase MD 11/13/2016 21:29)
--- NOTE | 2016-11-13 21:13 | ED ORDER SUMMARY ---
..... Patient: BARBARA MURDOCK OrderSheet [facility] VisitID: [id number] [address] [place] [address] 76y, M Registration Date/Time: 11/13/2016 ORDER SHEET Weight: 97.5 kg (stated) Allergies: None GENERAL ORDERS: MEDICATION ORDERS: Glucagon IV 1 mg (NOW) (21:00 11/13/2016 Ta RodrigesNLuis Enrique verbal order read back to Grzegorz BLOOD) (21:02 Ta R.N.) IV FLUIDS: IV Saline Lock (20:43 11/13/2016 Ta Hurt verbal order read back to Grzegorz BLOOD) (20:44 Ta R.N.) ORDER SHEET NOTES: [Electronically signed by Yung Chase MD (21:29 11/13/2016)] [Electronically signed by Bebo Romo R.N. (21:47 11/13/2016)] [Electronically locked/signed by Bebo Romo R.N. (21:47 11/13/2016)]
--- NOTE | 2016-11-13 21:13 | ED NURSING NOTES ---
Clinical Report - [facility] [address] [place] [address] 11/13/2016 20:15 [id number] Triage time 20:Nov 13 2016. Acuity: LEVEL 3. Chief Complaint: (FB in esopagus). Alert. REBECCA COMA SCORE: Rebecca Coma Scale: 15- eyes open spontaneously (4); best verbal response- oriented x 4 (5); best motor response- obeys commands (6). --20:38 Bebo Romo R.N. 20:27 11/13/16. BP: 185/53. HR: 74. RR: 16. O2 saturation: 96% on room air. Temp: 99 F (oral). Pain level now: 09/03. Additional comments: dysphagia. --20:38 Bebo Romo R.N. Weight: 97.5 kg stated. Height/Length: 71 inches Per Patient. BMI: 30. --20:37 Bebo Romo R.N. Medications Amitriptyline HCl Oral 50 mg, at bedtime. ferritin 2 tablets, daily. Insulin Levemir 12 units, 2x a day. Insulin Novalog sliding scale, 3x a day. MetFORMIN HCl Oral (Tablet 500 mg) 2 tablets, 2x a day. Potassium Oral 10meq, daily. Vitamin B-12 Oral. Vitamin c Oral. --20:34 Bebo Romo R.N. Lisinopril Oral. --20:35 Bebo Romo R.N. Allergies None. --20:34 Bebo Romo R.N. History Arrived by private vehicle. Historian: patient. Accompanied by spouse. Primary physician (Shreya). ( FB stuck in throat. [facility]loaf [facility] had for dinner didn't help. He states that he has had lung CA and and recently had radiation therapy, which in turn caused the esophageal stricture. He has had a FB stuck in his throat twice before and received Glucagon, which relieved the obstruction.). This started today. Onset. (about 8 hours ago). ( Oral secretions keep coming back up.). 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 PAST MEDICAL HX: Immunizations: up-to-date. SOCIAL HX: Former smoker, end date 1996. No alcohol use or drug use. No infectious disease exposure. ABUSE ASSESSMENT: No report of abuse. FALL RISK ASSESSMENT: Fall risk assessment completed. No fall risk identified. NUTRITIONAL RISK ASSESSMENT: The nutritional risk assessment revealed no deficiencies. FUNCTIONAL ASSESSMENT: Functional assessment: no impairments noted. LEARNING NEEDS ASSESSMENT: The learning needs assessment revealed no barriers. SKIN INTEGRITY ASSESSMENT: Skin integrity risk assessment completed. No skin integrity risk identified. --20:38 Bebo Romo R.N. PROBLEMS: Esophageal Foreign Body. Nephropathy. TIA - Transient Ischemic Attack. Cancer. Paresthesia. Rib Fracture. Fall. Contusion. Heart Disease. Urinary Retention. Pneumonia. Sleep Apnea. CVA - Cerebrovascular Accident. IA . Immunizations. Bronchitis. Chronic Back Pain. Diabetes Mellitus. Hypertension. --20:35 Bebo Romo R.N. Interventions ID band on patient. To treatment room. --20:38 Bebo Romo R.N. PHYSICAL ASSESSMENT Ambulatory to room. GENERAL / NEURO / PSYCH: Alert. Oriented X 4. HEENT: No facial asymmetry noted. Mucous membranes are pink. RESPIRATORY: Respirations not labored. CVS: Cardiac rhythm: (RRR). GI / : Abdomen soft and nontender. SKIN: Skin intact. Skin is warm and dry. Normal skin turgor. --20:38 Bebo Romo R.N. NURSING PROGRESS NOTES Patient gowned. Reassurance given. Patient identifiers checked. Side rails up x 1. Bed placed in lowest position. Brakes of bed on. Patient ready for evaluation- chart flagged and ED physician notified. --20:39 Bebo Romo R.N. 20:34 11/13/2016 Site #1 started via IV in the left hand with an 20g angiocath; one attempt. Blood drawn: rainbow set. Saline lock flushed with 10 mL saline (start by Bindu Nance RN). --20:44 Bebo Romo R.N. 21:00 11/13/2016 Glucagon IVP 1 mg given over 2 minute(s) via site #1. Allergies verified and confirmed 5 rights. IV patency established. IV site checked: no pain, redness, or swelling. IV flushed thoroughly pre- and post-medication administration. IVP given by RN. --21:02 Bebo Romo R.N. DISPOSITION / DISCHARGE 21:15 11/13/16. BP: 155/47. HR: 73. RR: 16 (regular). O2 saturation: 97%. Temp: 99.1 F (oral). Pain level now: 0/10. --21:44 Bebo Romo R.N. Departure time: 2119. --21:44 eBbo Romo R.N. 21:20. No learning barriers present. Discharge instructions provided and reviewed with the patient and the patient left prior to discharge education being provided. Reviewed medication(s) (continue your usual prescribed medications). Reviewed referral to family practice. Patient verbalized understanding. Written instructions provided in [place]. The patient was discharged by the physician. 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 He left the Emergency Department ambulatory and via private vehicle. [employer] driving. --21:46 Bebo Romo R.N. Locked/Released at 11/13/2016 21:47 by Bebo Romo R.N.
--- NOTE | 2016-11-13 21:47 | ED MAR SUMMARY ---
..... Medication Administration Record [facility] [address] [place] [address] Patient: BARBARA MURDOCK Visit ID: [id number] 76y, M Weight: 97.5 kg Height/Length: 71 in BMI: 30 ALLERGIES: None Given 21:00 11/13/2016 Bebo Romo R.N. Medication Administered: GLUCAGON [IVP], Dose: 1 mg IVP over 2 minute(s), Site: #1 left hand. Medication Ordered: Glucagon IV 1 mg (NOW).
--- NOTE | 2016-11-13 21:47 | ED DISCHARGE INSTRUCTIONS ---
Patient: BARBARA MURDOCK General Instructions [facility] VisitID: [id number] [place] [address] 76y, M Registration Date/Time: 11/13/2016 Esophageal foreign body: food. INSTRUCTIONS Drink plenty of fluids. Follow a soft diet. Warnings: Further evaluation is necessary. GENERAL WARNINGS: Return or contact your physician immediately if your condition worsens or changes unexpectedly, if not improving as expected, or if other problems arise. Your Current Medications: CONTINUE TAKING THE FOLLOWING MEDICATIONS: Amitriptyline HCl Oral : 50 mg at bedtime. ferritin* : 2 tablets daily. Insulin Levemir* : 12 units 2x a day. Insulin Novalog* : sliding scale 3x a day. Lisinopril Oral. MetFORMIN HCl Oral : Tablet 500 mg, 2 tablets 2x a day. Potassium Oral : 10meq daily. Vitamin B-12 Oral. Vitamin c Oral. Follow-up: Follow up with a case preparer and liner Friday as scheduled. Understanding of the discharge instructions verbalized by patient. ADDITIONAL INFORMATION Esophageal Blockage, Resolved The esophagus is the passage that carries food from the mouth to the stomach. You had a blockage in the esophagus. This can happen after swallowing a large piece of food, taking a large pill or swallowing foreign objects. If this is a recurring problem, it can be a sign of disease in the esophagus such as inflammation or scarring. If you did not require a special procedure (endoscopy) today to treat your condition, further testing will be needed to evaluate this problem. The blockage has cleared. You should be able to swallow normally again. Home Care: For the next 24 hours you may drink liquids and eat soft foods. If you were given IV medicine today for an endoscopy procedure, you may be drowsy for the next 4-[address] or operate dangerous equipment until you feel alert again. If your blockage was from food, be sure to cut solid food into small pieces before putting it into your mouth. Chew all foods well before swallowing. If your blockage was from an vyga-bob-pmxjxcu pill (such as a vitamin), avoid this size pill in the future. If it was from a prescription medicine, ask your doctor for another type of medicine to replace this. Follow Up with your doctor as advised. If you have further problems, contact your doctor or this facility for advice. If this is a recurring problem, contact your doctor to schedule an endoscopy (to look inside the esophagus with a small camera on the end of a tube). Get Prompt Medical Attention if any of the following occur: Chest pain or shortness of breath Unable to swallow Vomiting blood (red or black) Blood in your stool (dark red or black color) Fever of 100.4F (38C) or higher, or as directed by your healthcare provider You have been given the following additional information: Esophageal Foreign Body, Resolved (Electronically signed by Yung Chase MD 11/13/2016 21:29)
--- NOTE | 2016-11-13 21:47 | ED MED RECONCILIATION SUMMARY ---
Patient: BARBARA MURDOCK Medication Reconciliation Report [facility] VisitID: [id number] [address] [place] [address] 76y, M Registration Date/Time: 11/13/2016 Weight: 97.5 kg Height/Length: 71 in. BMI: 30.0 ALLERGIES: None The patient's Home Medications are listed below: CONTINUE TAKING THE FOLLOWING MEDICATIONS: Amitriptyline HCl Oral 50 mg, at bedtime ferritin 2 tablets, daily Insulin Levemir 12 units, 2x a day Insulin Novalog sliding scale, 3x a day Lisinopril Oral MetFORMIN HCl Oral (500 mg) 2 tablets, 2x a day Potassium Oral 10meq, daily Vitamin B-12 Oral Vitamin c Oral The source(s) of the original Home Medication information: Not obtained. The following Medications were given to the patient in the Emergency Department: Glucagon [IVP] IVP 1 mg, administered: 11/13/2016 9:00:00 PM The following Medications were prescribed to the patient: None.
--- NOTE | 2016-11-13 21:47 | ED DISCHARGE INSTRUCTIONS ---
Patient: BARBARA MURDOCK General Instructions [facility] VisitID: [id number] [place] [address] 76y, M Registration Date/Time: 11/13/2016 Esophageal foreign body: food. INSTRUCTIONS Drink plenty of fluids. Follow a soft diet. Warnings: Further evaluation is necessary. GENERAL WARNINGS: Return or contact your physician immediately if your condition worsens or changes unexpectedly, if not improving as expected, or if other problems arise. Your Current Medications: CONTINUE TAKING THE FOLLOWING MEDICATIONS: Amitriptyline HCl Oral : 50 mg at bedtime. ferritin* : 2 tablets daily. Insulin Levemir* : 12 units 2x a day. Insulin Novalog* : sliding scale 3x a day. Lisinopril Oral. MetFORMIN HCl Oral : Tablet 500 mg, 2 tablets 2x a day. Potassium Oral : 10meq daily. Vitamin B-12 Oral. Vitamin c Oral. Follow-up: Follow up with a food taster Friday as scheduled. Understanding of the discharge instructions verbalized by patient. ADDITIONAL INFORMATION Esophageal Blockage, Resolved The esophagus is the passage that carries food from the mouth to the stomach. You had a blockage in the esophagus. This can happen after swallowing a large piece of food, taking a large pill or swallowing foreign objects. If this is a recurring problem, it can be a sign of disease in the esophagus such as inflammation or scarring. If you did not require a special procedure (endoscopy) today to treat your condition, further testing will be needed to evaluate this problem. The blockage has cleared. You should be able to swallow normally again. Home Care: For the next 24 hours you may drink liquids and eat soft foods. If you were given IV medicine today for an endoscopy procedure, you may be drowsy for the next 4-[address] or operate dangerous equipment until you feel alert again. If your blockage was from food, be sure to cut solid food into small pieces before putting it into your mouth. Chew all foods well before swallowing. If your blockage was from an ecgx-sxh-jdvlfge pill (such as a vitamin), avoid this size pill in the future. If it was from a prescription medicine, ask your doctor for another type of medicine to replace this. Follow Up with your doctor as advised. If you have further problems, contact your doctor or this facility for advice. If this is a recurring problem, contact your doctor to schedule an endoscopy (to look inside the esophagus with a small camera on the end of a tube). Get Prompt Medical Attention if any of the following occur: Chest pain or shortness of breath Unable to swallow Vomiting blood (red or black) Blood in your stool (dark red or black color) Fever of 100.4F (38C) or higher, or as directed by your healthcare provider You have been given the following additional information: Esophageal Foreign Body, Resolved (Electronically signed by Yung Chase MD 11/13/2016 21:29)
--- NOTE | 2016-11-13 21:47 | ED MAR SUMMARY ---
..... Medication Administration Record [facility] [address] [place] [address] Patient: BARBARA MURDOCK Visit ID: [id number] 76y, M Weight: 97.5 kg Height/Length: 71 in BMI: 30 ALLERGIES: None Given 21:00 11/13/2016 Bebo Romo R.N. Medication Administered: GLUCAGON [IVP], Dose: 1 mg IVP over 2 minute(s), Site: #1 left hand. Medication Ordered: Glucagon IV 1 mg (NOW).
--- NOTE | 2016-11-13 21:47 | ED MED RECONCILIATION SUMMARY ---
Patient: BARBARA MURDOCK Medication Reconciliation Report [facility] VisitID: [id number] [address] [place] [address] 76y, M Registration Date/Time: 11/13/2016 Weight: 97.5 kg Height/Length: 71 in. BMI: 30.0 ALLERGIES: None The patient's Home Medications are listed below: CONTINUE TAKING THE FOLLOWING MEDICATIONS: Amitriptyline HCl Oral 50 mg, at bedtime ferritin 2 tablets, daily Insulin Levemir 12 units, 2x a day Insulin Novalog sliding scale, 3x a day Lisinopril Oral MetFORMIN HCl Oral (500 mg) 2 tablets, 2x a day Potassium Oral 10meq, daily Vitamin B-12 Oral Vitamin c Oral The source(s) of the original Home Medication information: Not obtained. The following Medications were given to the patient in the Emergency Department: Glucagon [IVP] IVP 1 mg, administered: 11/13/2016 9:00:00 PM The following Medications were prescribed to the patient: None.
== END 2016-11-13 21:20 | disposition home or self-care (01) ==
LOC: ED SRH 20:14
DX: T18.128A Food in esophagus causing other injury, initial encounter (principal); Z85.118 Personal history of other malignant neoplasm of bronchus and lung